=== PATIENT | female | born 1955 | race Caucasian/White ===

== ENCOUNTER → 2023-08-03 15:20 | Outpatient (REF) | payer OTHER, SELFPAY | LOC: WDC 15:20 | PROVIDERS: ATTENDING PHYSICIAN Family Medicine | DX: Z12.31 Encounter for screening mammogram for malignant neoplasm of breast (principal) | CPT/HCPCS: 77063; 77067 ==

== ENCOUNTER 2023-08-25 07:15 | Emergency (ER) | payer OTHER, SELFPAY ==
[2023-08-25 07:17] VITALS: BP 123/88
--- NOTE | 2023-08-25 08:41 | ED.GENMED ---
History of Present Illness
General
Chief Complaint: Abdominal Symptoms
Source: patient
Exam Limitations: none
Time Seen by Provider: 08/25/23 07:36
Nursing documentation reviewed up to this point in time: agreed with
Travel History
Have you had any contact with someone who has COVID-19?: No
Do you have any symptoms of coronavirus? Fever > 100 degrees, chills, cough, shortness of breath, sore throat, loss of taste or smell, muscle aches, or headache?: No
History of Present Illness
History of Present Illness:
The patient is a pleasant 68-year-old female who comes in with complaints of persistent ongoing watery diarrhea for 6 days. Patient also reports intermittent abdominal pain that intensifies during the evening and spreads into her chest. Patient
reports that last night she experienced intense abdominal cramping that radiated into her chest and she felt pressure in her ears as well. At that moment, patient also felt that she cannot swallow. Patient reports she now feels much better but
still has mild burning pain in her mid upper abdomen area. Patient reports this morning is the first time she had a more formed bowel movement. She also experienced vomiting for the first time last night. She denies fever. She denies sore throat
and any difficulty swallowing at this time. She denies sick contacts and recent travel history. She reports she was recently on several weeks of doxycycline for rosacea. Patient reports she also has fatigue and body aches and cramps.
Past History
Past History
ED Past Medical History: Cancer (History of non-Hodgkin's lymphoma), HTN, Hypercholesterolemia and Other (Raynaud's disease)
ED Past Surgical History: Gynecological and Orthopedic
Social History
Tobacco: Former smoker
Alcohol: Occasional
Personal: Single
Living: with family
Employment: Employed
Family History
Family History: CAD and Other (CA)
Review of Systems
Review of Systems
Allergies reviewed?: Yes
All Other Systems: ROS reviewed and negative except as documented in HPI and ROS
Constitutional: Reports fatigue
EENT: Reports other (Difficulty swallowing last night which is now resolved. Bilateral ear pain which is now resolved)
Respiratory: Reports no symptoms
Cardiac: Reports chest pain
ABD/GI: Reports abdominal pain, nausea, vomiting, diarrhea and anorexia
: Reports no symptoms
Musculoskeletal: Reports muscle pain
Skin: Reports no symptoms
Neurological: Reports headache
Endocrine: Reports no symptoms
Hematologic/Lymphatic: Reports no symptoms
Psychiatric: Reports no symptoms
Phy Exam
Physical Exam
Physical Exam:
Physical Exam
General: no apparent distress, not acutely ill, patient appears nontoxic. Is conversational
Neck: supple. no meningeal signs. normal psoterior pharynx. No pharyngeal erythema or exudate. TMs appear normal bilaterally
Heart: s1/s2 regular rate and rhythm, systolic ejection murmur. equal radial pulses.
Lungs: no acute respiratory distress. clear bilaterally
Abdomen: Soft throughout. No pulsatile mass. Mild epigastric tenderness without rebound or guarding
Neuro: alert and oriented. no focal neurological deficits
Skin: no rash
Psychiatric: well kept. interactive and cooperative
Extremities: no edema. no calf tenderness. negative homans. good distal pulses
Course
Orders/Labs/Results
Orders:
Orders
08/25/23 08:26
Electrocardiogram (*1) Urgent
Reason for Study: Chest Pain
EKG- Treatment ONCE
0.9% Sodium Chloride 1000 ml [Nss] 1,000 ml IV BOLUS
Mag Hydrox/Al Hydrox/Simeth [Maalox] 30 ml Phenobarb/Hyoscy/Atropine/Scop [] 10 ml Viscous Lidocaine 2% [Xylocaine Viscous Cup] 10 ml PO NOW
08/25/23 08:27
Iohexol [Omnipaque] See Protocol PO NOW STA
08/25/23 09:04
Complete Blood Count/With Diff Urgent
Comprehensive Metabolic Panel Urgent
Lipase Urgent
Monotest Urgent
Troponin I Urgent
Influenza A+B Rapid Molecular Urgent
ACE Source: Nasal Swab
Specimen Description:
08/25/23 09:34
Mag Hydrox/Al Hydrox/Simeth [Maalox] 30 ml .ROUTE .STK-MED ONE
Phenobarb/Hyoscy/Atropine/Scop [] 10 ml .ROUTE .STK-MED ONE
Viscous Lidocaine 2% [Xylocaine Viscous Cup] 15 ml .ROUTE .STK-MED ONE
08/25/23 11:32
Ondansetron Injectable [Zofran] 4 mg IV NOW STA
08/25/23 11:33
CT Abd/pel (oral only)-DH Only Urgent
Comment:
Reason For Exam: ab pain, vomiting
Iohexol [Omnipaque] See Protocol PO NOW STA
08/25/23 11:46
STOOL [C difficile Antigen & Toxins] Urgent
ACE Source: Feces/Stool
Specimen Description:
Date Specimen was Collected: 08/25/23
Time Specimen was Collected: 11:44
Stool Culture Urgent
ACE Source: Feces/Stool
Specimen Description:
Date Specimen was Collected: 08/25/23
Time Specimen was Collected: 11:44
08/25/23 13:13
Loperamide [Imodium] 2 mg PO NOW STA
08/25/23 13:14
Loperamide [Imodium] 4 mg PO NOW STA
Abnormal Lab Results
08/25/23
09:04
Absolute Monos (auto) 0.8 H 10^3/uL
(0.1-0.6)
Lymphocytes % 13.7 L %
(20.5-51.1)
Eosinophils % 6.8 H %
(0-6)
Glucose 114 H mg/dl
(70-99)
Alkaline Phosphatase 138 H U/L
(38-126)
08/25/23 09:04
08/25/23 09:04
Vital Signs
Initial and Last Documented VS:
Initial Vital Signs
Temp Pulse Resp BP Pulse Ox
97.6 F 91 18 123/88 96
08/25/23 07:17 08/25/23 07:17 08/25/23 07:17 08/25/23 07:17 08/25/23 07:17
Last Documented Vital Signs
Temp Pulse Resp BP Pulse Ox
97.6 F 91 18 123/88 96
08/25/23 07:17 08/25/23 07:17 08/25/23 07:17 08/25/23 07:17 08/25/23 07:17
MDM/Problems Addressed
Differential Diagnosis Includes:
Gastroenteritis, gastritis, pancreatitis, C. difficile
MDM/Problems Addressed:
Patient presents with acute abdominal pain and diarrhea
Chronic conditions affecting care: HTN
*Radiology
Radiology exam reviewed: radiology read reviewed
*Pulse Oximetry
Patient hypoxic: no
*EKG
Interpreted by ED Provider?: Yes
Interpretation: abnormal
Comparison EKG: changes noted
Rate: normal
Rhythm: sinus
[place]: normal axis
QRS Pattern: normal QRS
Ischemia: non-specific ST changes
*Cage Tender Interpretation
Rate: normal
Interpretation: normal
Rhythm: sinus
*Critical Care Note
Total Time (30-74mins, 75-104mins- exclusive of procedures): Not Applicable
Data Reviewed
Review of Other/Old Records Reveals: Testing (Cardiac echo reviewed from 02/2023 which shows moderate aortic stenosis)
Source: patient
Update Note
Update Note:
1:21 PM patient reports she feels better. Chest pain gone. Still having watery nonbloody diarrhea. CT shows no evidence of bowel obstruction or acute appendicitis. Symptoms are likely due to gastroenteritis. Very unlikely to be acute coronary
syndrome given that patient's pain is more epigastric in nature and her troponin is normal. Patient encouraged to use Zofran as needed for nausea and Imodium as needed for diarrhea.
ED Attending Note
-
Portions of this chart may have been created with voice recognition software.� Occasional wrong word or��sound alike� substitutions may have occurred due to the inherent limitations of voice recognition software.
Discharge Plan
Departure
Patient Disposition: Home (Routine Discharge)
Date of Disposition: 08/25/23
Time of Disposition: 13:15
Patient with high blood pressure during this ER visit?: Yes
Condition: Good
Covid-19: Not Applicable
Discharge Problem:
Acute diarrhea, Acute vomiting
Instructions: Diarrhea in adolescents and adults, [place] Diet, Nausea and Vomiting, Adult (DC)
Prescriptions:
New
ondansetron 4 mg tablet,disintegrating
4 mg PO QID PRN (Reason: nausea and vomiting) Qty: 14 0RF
No Action
lorazepam 0.5 MG tablet
0.5 mg PO PRN PRN (Reason: anxiety/insomnia)
red yeast rice 600 MG capsule
600 mg PO DAILY
Magnesium
1 tab PO DAILY
acetaminophen 325 MG tablet
650 mg PO QID 0RF
hydromorphone 2 MG tablet
2 mg PO Q4HPRN PRN (Reason: moderate-severe pain) Qty: 60 0RF
Rx Instructions:
dx tka
ongoing
1 moderate pain or 2 if severe
magnesium hydroxide 30 ML suspension
30 ml PO DAILYPRN PRN (Reason: constipation) 0RF
aspirin 325 MG tablet,delayed release (DR/EC)
325 mg PO DAILY 0RF
docusate sodium 100 MG capsule
100 mg PO BID 0RF
mupirocin 1 APPLIC ointment
1 applic intranasal BID Qty: 1 0RF
Rx Instructions:
use tonight 03/31, then stop
amlodipine 5 MG tablet
5 mg PO HS Qty: 0 0RF
Rx Instructions:
hold systolic blood pressure <120
naproxen sodium [Aleve] 220 MG tablet
220 mg PO BID Qty: 1 0RF
Rx Instructions:
RESUME IN 5-7 DAYS, BUT TAKE WITH FOOD AND NOT WITHIN 2H OF ASA
--TAKE PEPCID 20MG AT PM IF TAKING WHILE ON ASA
Referrals:
Hilda Zavala MD [Family Provider] -
Activity Restrictions/Additional Instructions:
Use the Zofran as needed for nausea. As long as the diarrhea stays nonbloody, you can take Imodium, which is sold [id number]
Interventions
Interventions:
*General Assessment Last Done: 08/25/23 09:48
ED- Fall Risk Assessment Last Done: 08/25/23 09:49
*ED COVID-19 Vaccine History Last Done: 08/25/23 09:48
RM-[id number] Assessment Last Done: 08/25/23 09:50
[2023-08-25] MEDS: NSS 1000 IV (09:06)
[2023-08-25 09:30] LABS: % Basophils 0.2 % (0-2); % Eosinophils 6.8 % (0-6); % Immature Granulocytes 0.2 % (0-0.5); % Lymphocytes 13.7 % (20.5-51.1); % Monocytes 9.1 % (1.7-9.3); Absolute Eosinophils 0.6 10^3/uL (0-0.7); Absolute Lymphocytes 1.2 10^3/uL (1.2-3.4); Absolute Monocytes 0.8 10^3/uL (0.1-0.6); Hematocrit 42.1 % (37.0-47.0); Hemoglobin 14.2 g/dL (12.0-16.0); Mean Corp Hgb Conc. 33.7 g/dL (33.0-37.0); Mean Corpuscular Hgb 30.5 pg (27.0-31.0); Mean Corpuscular Volume 90.5 fL (81.0-99.0); Mean Platelet Volume 10.1 fL (7.4-10.4); Nucleated Red Blood Cells % 0 %; Platelet Count 214 10^3/uL (130-400); Red Blood Cell Count 4.65 10^6/uL (4.20-5.40); Red Cell Dist. Width 12.3 % (11.5-14.5); White Blood Cell Count 8.6 10^3/uL (4.8-10.8)
[2023-08-25] MEDS: OMNIPAQUE 50 ML PO (09:38)
[2023-08-25] MEDS: MAALOX 30 PO (09:39)
[2023-08-25 09:40] LABS: ALT (SGPT) 30 U/L (0-35); AST (SGOT) 28 U/L (14-36); Albumin 4.3 g/dl (3.5-5.0); Alkaline Phosphatase 138 U/L (38-126); Blood Urea Nitrogen 12 mg/dl (7-17); Calcium 9.3 mg/dl (8.4-10.2); Carbon Dioxide 26 mmol/L (22-30); Chloride 104 mmol/L (98-107); Glucose 114 mg/dl (70-99); Lipase 48 U/L (23-300); Potassium 3.8 mmol/L (3.5-5.1); Sodium 138 mmol/L (135-145); Total Bilirubin 0.5 mg/dl (0.2-1.3); Total Protein 6.6 g/dl (6.3-8.2); eGFR > 60.00
[2023-08-25 09:50] VITALS: BMI 21.1
[2023-08-25 09:50] LABS: Troponin I < 0.012 ng/ml
[2023-08-25 10:00] LABS: Monotest Negative (Negative)
[2023-08-25] MEDS: ZOFRAN 4 MG IV (11:36)
[2023-08-25] MEDS: IMODIUM 4 MG PO (13:18)
[2023-08-25 13:43] VITALS: BP 133/80
[2023-08-25 13:44] VITALS: BP 133/80
== END 2023-08-25 13:46 | disposition home or self-care (01) ==
LOC: EMR 07:15
PROVIDERS: EMERGENCY PHYSICIAN Emergency Medicine; FAMILY PHYSICIAN Family Medicine
DX: R19.7 Diarrhea, unspecified (principal); R11.2 Nausea with vomiting, unspecified; I10 Essential (primary) hypertension; I73.00 Raynaud's syndrome without gangrene; E78.00 Pure hypercholesterolemia, unspecified; Z82.49 Family history of ischemic heart disease and other diseases of the circulatory system; Z85.72 Personal history of non-Hodgkin lymphomas; Z87.891 Personal history of nicotine dependence
CPT/HCPCS: 99284; 96374; 96361; 74176; 80053; 83690; 84484; 85025; 86308; 87045; 87046; 87324; 87427; 87449; 87502; 93005

== ENCOUNTER → 2024-01-15 09:00 | Outpatient (REF) | payer OTHER, SELFPAY | LOC: RAD 09:00 | PROVIDERS: ATTENDING PHYSICIAN Internal Medicine Rheumatology; FAMILY PHYSICIAN Family Medicine | DX: M81.0 Age-related osteoporosis without current pathological fracture (principal) | CPT/HCPCS: 77080 ==

== ENCOUNTER → 2024-02-19 10:14 | Outpatient (REF) | payer OTHER, SELFPAY | LOC: RCS 10:14 | PROVIDERS: ATTENDING PHYSICIAN Internal Medicine Cardiovascular Disease; FAMILY PHYSICIAN Family Medicine | DX: I35.0 Nonrheumatic aortic (valve) stenosis (principal) | CPT/HCPCS: 93306 ==

== ENCOUNTER 2024-06-06 11:11 | Outpatient (RCR) | payer OTHER, SELFPAY | END 2024-06-06 23:59 | disposition home or self-care (01) | LOC: RPT 11:11 | PROVIDERS: ATTENDING PHYSICIAN Obstetrics & Gynecology; FAMILY PHYSICIAN Family Medicine | DX: N81.6 Rectocele (principal); N39.41 Urge incontinence; R35.0 Frequency of micturition; K46.9 Unspecified abdominal hernia without obstruction or gangrene; K62.89 Other specified diseases of anus and rectum; Z73.6 Limitation of activities due to disability | CPT/HCPCS: 97110; 97161; 97530 ==

== ENCOUNTER 2024-07-06 18:23 | Observation (INO) | payer OTHER, MEDICARE, SELFPAY ==
[2024-07-06] VITALS (10 sets, daily range): BP systolic 141–190; BP diastolic 75–105; BMI 19.9
--- NOTE | 2024-07-06 15:45 | ED.GENMED ---
ED Provider Triage
<Song Jimenez PA-C - Last Filed: 07/06/24 15:51>
-
Patient seen by provider in Triage?: Seen in Triage
Attestation: A medical screening examination has been initiated by a qualified medical provider. Based on the assessment performed at this time, it has been determined that an emergent medical condition may exist and the patient has been informed
that further medical evaluation and possible additional diagnostic testing may be needed.
HPI: 69-year-old female with past medical history of previous CVA and vestibular migraines presenting to the emergency department for evaluation of left lip paresthesia sensation that began about 2 hours ago, right upper extremity numbness that
began approximately 1 hour ago while she was out to lunch with a friend. Patient has also had some vestibular symptoms intermittently over the last 48 hours. Patient notes that today she has been unable to stand up on her own. She takes an 81 mg
aspirin as well as amlodipine. Found to be significantly hypertensive in triage. She is dysmetric on my exam, more so on the right. Stroke alert called given patient's history.
GENERAL: Alert , in no apparent distress
EYE: No visual abnormalities.
NECK: Trachea midline
ENT: No visible abnormalities.
LUNGS: No acute respiratory distress
NEUROLOGICAL: Alert and oriented
SKIN: Skin intact. No visible changes.
MUSCULOSKELETAL: Moving extremities normally
PSYCH: Normal and appropriate interaction.
This is a medical evaluation conducted in person to initiate diagnostic evaluation and provide initial therapeutics. Please see further documentation by the treating clinician.
History of Present Illness
<Song Jimenez PA-C - Last Filed: 07/06/24 15:51>
General
Chief Complaint: CVA/TIA Symptoms
Time Seen by Provider: 07/06/24 16:15
<Wei Hutchison MD - Last Filed: 07/08/24 14:54>
History of Present Illness
History of Present Illness:
Patient is a 69-year-old female with a history of vestibular migraines and CVA in the past who presents with multiple days of dizziness, vertigo, headache. Today she began having more severe symptoms and felt numbness and tingling on the right side
of her face and right arm. She states it feels similar to her prior thalamic stroke.
Past History
<Song Jimenez PA-C - Last Filed: 07/06/24 15:51>
Past History
ED Past Medical History: Cancer (History of non-Hodgkin's lymphoma), HTN, Hypercholesterolemia and Other (Raynaud's disease)
ED Past Surgical History: Gynecological and Orthopedic
Social History
Tobacco: Former smoker
Alcohol: Occasional
Personal: Single
Living: with family
Employment: Employed
Family History
Family History: CAD and Other (CA)
Phy Exam
<Wei Hutchison MD - Last Filed: 07/08/24 14:54>
Physical Exam
Physical Exam:
GENERAL APPEARANCE: NAD, well developed/ well nourished, laying in stretcher with sunglasses on
EYES lids/conjunctiva normal
EARS/NOSE/THROAT Mucous membranes moist, uvula midline without oral pharyngeal erythema, exudate or swelling
HEAD/NECK normocephalic atraumatic, neck is supple.
RESPIRATORY respiratory effort normal, speaks in full sentences, no accessory muscle use. Lungs clear to auscultation without rhonchi, wheezes, rales
CARDIAC Regular rate and rhythm, no edema.
ABDOMINAL Soft, ND/NT. No pulsatile masses on exam, rebound tenderness, Rodriguez sign or pain over Mcburney's point.
MUSCLES/EXTREMITIES No abnormal range of motion, no swelling.
SKIN Warm, pink and dry. No rashes
NEUROLOGICAL Speech is clear and appropriate. Normal level of consciousness. 5/5 strength in all extremities. Mildly diminished sensation to right side of face and right upper extremity. She has mild dysmetria in upper extremities bilaterally.
Cranial nerves II through XII are intact otherwise there is no nystagmus.
PSYCH Normal mood and affect. Judgement/competence is appropriate
Course
<Song Jimenez PA-C - Last Filed: 07/06/24 15:51>
Orders/Labs/Results
Orders:
Orders
07/06/24 Breakfast
Sodium, 2 Gram
At Your Request: Limited Participation
Low Sodium: Cholesterol Lowering
07/06/24 15:50
CT HEAD STROKE ALERT W/o Cont Urgent
Comment:
Reason For Exam: dysmetria, HTN, RUE numbness, hx CVA
CT HEAD/NECK ANG STROKE ALERT Urgent
Comment:
Reason For Exam: dysmetria, HTN, RUE numbness, hx CVA
07/06/24 15:57
EKG [Electrocardiogram (*1)] Urgent
Reason for Study: Tachycardia
EKG- Treatment ONCE
07/06/24 16:04
Complete Blood Count/With Diff Urgent
Comprehensive Metabolic Panel Urgent
PTT Urgent
Troponin I Urgent
07/06/24 16:43
Aspirin Chewable [Low Strength Aspirin] 324 mg PO NOW STA
07/06/24 17:47
Admit/Transfer Patient As Directed
Co-Sign Provider:
Level of Care: Observation services
Assign to:: Telemetry
Physician / Group: Jh Jones
Diagnosis: Numbness, Uncontrolled hypertension
Reason for Telemetry: CVA/TIA
Date to Stop Telemetry: 07/09/24
Time to Stop Telemetry: 11:00
07/06/24 17:49
Code Status As Directed
Resuscitation Status: Full Code
PRN Pain Medication Management As Directed
May give lesser potent ordered pain med per pt: Yes
preference::
Protocol:: Medication orders for pain may be administered in a
manner that supports deferring to patient preference
when the pt is:
- Requesting an ordered lesser potent pain medication.
Least to most potent pain medications are defined
as: acetaminophen < NSAID < tramadol < opioids
(morphine, oxycodone, hydromorphone).
- Requesting a lesser dose of the same medication IF
ORDERED.
- Requesting a less intrusive route of administration
if both routes are prescribed by the provider (PO <
IV).
07/06/24 17:51
Acetaminophen [Tylenol] 1,000 mg PO NOW STA
07/06/24 19:56
Acetaminophen [Tylenol/Feverall] 650 mg RECTAL Q4HPRN PRN
Acetaminophen [Tylenol] 650 mg PO Q4HPRN PRN
HydrALAZINE [Apresoline] 5 mg IV Q4HPRN PRN
07/06/24 19:56
Case Management Consult ONCE
Case Management Consult: Discharge Planning
Comment: stroke/tia
DIETARY CONSULT Routine
Reason for Consult: stroke/TIA
NEUROLOGY CONSULT Urgent
Consulting Provider: Marleny Storey
Was physician already notified: Yes
Pneumatic Tester Routine
Activity As Directed
Activity Level: Out of Bed-Early Mobility
Patient Education As Directed
Type: Stroke education packet
Comment: provide to patient and family
Pneumatic Compression Sleeves As Directed
Type: Knee high
Vital Signs As Directed
Frequency: Per unit guidelines
Ot Eval And Treat Routine
Pt Eval And Treat Routine
Activity Level: Out of Bed-Early Mobility
Speech Therapy Eval & Treat Routine
DX Deep Vein Thrombosis Video Routine
07/06/24 22:00
Lorazepam [Ativan] 1 mg PO HS
07/07/24 06:14
Basic Metabolic Panel IN AM
Cardiovascular Evaluation IN AM
Complete Blood Count/No Diff IN AM
Glycohemoglobin (HgbA1c) IN AM
Magnesium IN AM
07/07/24 08:00
Aspirin Low Dose EC [Aspir Low (Enteric Coated)] 81 mg PO DAILY
vibegron [Gemtesa] 75 mg PO DAILY
07/07/24 17:05
MR Brain Without Contrast Routine
Reason For Exam: numbness
OK for patient to be off Cardiac Monitoring for MRI: No
Recent pill cam endoscopy?: No
07/09/24 11:00
DC Protocol for Telemetry ONCE
Abnormal Lab Results
07/06/24
16:04
MCH 31.3 H pg
(27.0-31.0)
Absolute Monos (auto) 0.7 H 10^3/uL
(0.1-0.6)
Monocytes % 9.4 H %
(1.7-9.3)
BUN 18 H mg/dl
(7-17)
07/06/24 16:04
07/06/24 16:04
Vital Signs
Initial and Last Documented VS:
Initial Vital Signs
Temp Pulse Resp BP Pulse Ox
98.1 F 83 16 190/100 97
07/06/24 15:44 07/06/24 15:44 07/06/24 15:44 07/06/24 15:44 07/06/24 15:44
Last Documented Vital Signs
Temp Pulse Resp BP Pulse Ox
97.7 F 72 18 156/94 99
07/08/24 14:17 07/08/24 14:17 07/08/24 14:17 07/08/24 14:17 07/08/24 14:17
<Wei Hutchison MD - Last Filed: 07/08/24 14:54>
Orders/Labs/Results
Orders:
Orders
07/06/24 Breakfast
Sodium, 2 Gram
At Your Request: Limited Participation
Low Sodium: Cholesterol Lowering
07/06/24 15:50
CT HEAD STROKE ALERT W/o Cont Urgent
Comment:
Reason For Exam: dysmetria, HTN, RUE numbness, hx CVA
CT HEAD/NECK ANG STROKE ALERT Urgent
Comment:
Reason For Exam: dysmetria, HTN, RUE numbness, hx CVA
07/06/24 15:57
EKG [Electrocardiogram (*1)] Urgent
Reason for Study: Tachycardia
EKG- Treatment ONCE
07/06/24 16:04
Complete Blood Count/With Diff Urgent
Comprehensive Metabolic Panel Urgent
PTT Urgent
Troponin I Urgent
07/06/24 16:43
Aspirin Chewable [Low Strength Aspirin] 324 mg PO NOW STA
07/06/24 17:47
Admit/Transfer Patient As Directed
Co-Sign Provider:
Level of Care: Observation services
Assign to:: Telemetry
Physician / Group: Jh Jones
Diagnosis: Numbness, Uncontrolled hypertension
Reason for Telemetry: CVA/TIA
Date to Stop Telemetry: 07/09/24
Time to Stop Telemetry: 11:00
07/06/24 17:49
Code Status As Directed
Resuscitation Status: Full Code
PRN Pain Medication Management As Directed
May give lesser potent ordered pain med per pt: Yes
preference::
Protocol:: Medication orders for pain may be administered in a
manner that supports deferring to patient preference
when the pt is:
- Requesting an ordered lesser potent pain medication.
Least to most potent pain medications are defined
as: acetaminophen < NSAID < tramadol < opioids
(morphine, oxycodone, hydromorphone).
- Requesting a lesser dose of the same medication IF
ORDERED.
- Requesting a less intrusive route of administration
if both routes are prescribed by the provider (PO <
IV).
07/06/24 17:51
Acetaminophen [Tylenol] 1,000 mg PO NOW STA
07/06/24 19:56
Acetaminophen [Tylenol/Feverall] 650 mg RECTAL Q4HPRN PRN
Acetaminophen [Tylenol] 650 mg PO Q4HPRN PRN
HydrALAZINE [Apresoline] 5 mg IV Q4HPRN PRN
07/06/24 19:56
Case Management Consult ONCE
Case Management Consult: Discharge Planning
Comment: stroke/tia
DIETARY CONSULT Routine
Reason for Consult: stroke/TIA
NEUROLOGY CONSULT Urgent
Consulting Provider: Marleny Storey
Was physician already notified: Yes
Pneumatic Tester Routine
Activity As Directed
Activity Level: Out of Bed-Early Mobility
Patient Education As Directed
Type: Stroke education packet
Comment: provide to patient and family
Pneumatic Compression Sleeves As Directed
Type: Knee high
Vital Signs As Directed
Frequency: Per unit guidelines
Ot Eval And Treat Routine
Pt Eval And Treat Routine
Activity Level: Out of Bed-Early Mobility
Speech Therapy Eval & Treat Routine
DX Deep Vein Thrombosis Video Routine
07/06/24 22:00
Lorazepam [Ativan] 1 mg PO HS
07/07/24 06:14
Basic Metabolic Panel IN AM
Cardiovascular Evaluation IN AM
Complete Blood Count/No Diff IN AM
Glycohemoglobin (HgbA1c) IN AM
Magnesium IN AM
07/07/24 08:00
Aspirin Low Dose EC [Aspir Low (Enteric Coated)] 81 mg PO DAILY
vibegron [Gemtesa] 75 mg PO DAILY
07/07/24 17:05
MR Brain Without Contrast Routine
Reason For Exam: numbness
OK for patient to be off Cardiac Monitoring for MRI: No
Recent pill cam endoscopy?: No
07/09/24 11:00
DC Protocol for Telemetry ONCE
Abnormal Lab Results
07/06/24
16:04
MCH 31.3 H pg
(27.0-31.0)
Absolute Monos (auto) 0.7 H 10^3/uL
(0.1-0.6)
Monocytes % 9.4 H %
(1.7-9.3)
BUN 18 H mg/dl
(7-17)
07/06/24 16:04
07/06/24 16:04
Vital Signs
Initial and Last Documented VS:
Initial Vital Signs
Temp Pulse Resp BP Pulse Ox
98.1 F 83 16 190/100 97
07/06/24 15:44 07/06/24 15:44 07/06/24 15:44 07/06/24 15:44 07/06/24 15:44
Last Documented Vital Signs
Temp Pulse Resp BP Pulse Ox
97.7 F 72 18 156/94 99
07/08/24 14:17 07/08/24 14:17 07/08/24 14:17 07/08/24 14:17 07/08/24 14:17
<Wei Hutchison MD - Last Filed: 07/08/24 14:54>
*Critical Care Note
Total Time (30-74mins, 75-104mins- exclusive of procedures): Not Applicable
ED Attending Note
<Song Jimenez PA-C - Last Filed: 07/06/24 15:51>
-
Portions of this chart may have been created with voice recognition software.� Occasional wrong word or��sound alike� substitutions may have occurred due to the inherent limitations of voice recognition software.
<Wei Hutchison MD - Last Filed: 07/08/24 14:54>
ED Attending Note
ED Attending Note:
Patient with dizziness and vertigo ambulatory dysfunction as well as right-sided sensory changes. Stroke alert called on arrival. Neurology evaluated patient and suggested against any thrombolytics given patient's history of vestibular migraine
and current vestibular symptoms. However, given the sensory symptoms on the right as well as her history of prior thalamic infarct, will admit for stroke rule out
Discharge Plan
Departure
Patient Disposition: Admit
Date of Disposition: 07/06/24
Time of Disposition: 16:50
Presentation/result/management discussed w/ accepting MD/DO: Hospitalist
Discharge Problem:
Dizziness, Alteration in sensory perception
Interventions
Interventions:
*Risk Screen - Suicide Last Done: 07/06/24 15:44
*General Assessment Last Done: 07/06/24 15:44
*Neglect/Abuse Screening Last Done: 07/06/24 15:44
ED- Fall Risk Assessment Last Done: 07/06/24 16:00
*ED COVID-19 Vaccine History Last Done: 07/06/24 15:44
*Nursing Disposition Last Done: 07/06/24 19:40
ED- Pulmonary Assessment Last Done: 07/06/24 16:30
ED- Neurological Assessment Last Done: 07/06/24 16:29
ED- Cardiac Assessment Last Done: 07/06/24 16:28
ED Swallowing Screen Last Done: 07/06/24 16:45
Discharge Date and Time
Discharge Date/Time: 07/06/24 19:40
[2024-07-06 15:56] LABS: Glucose - Point of Care 99 mg/dl (70-99)
[2024-07-06 16:18] LABS: % Basophils 0.6 % (0-2); % Immature Granulocytes 0.1 % (0-0.5); % Lymphocytes 29.1 % (20.5-51.1); % Monocytes 9.4 % (1.7-9.3); % Neutrophils 59.8 % (42.2-75.2); Absolute Eosinophils 0.1 10^3/uL (0-0.7); Absolute Lymphocytes 2.1 10^3/uL (1.2-3.4); Absolute Monocytes 0.7 10^3/uL (0.1-0.6); Absolute Neutrophils 4.3 10^3/uL (1.4-6.5); Hematocrit 40.2 % (37.0-47.0); Mean Corp Hgb Conc. 34.8 g/dL (33.0-37.0); Mean Corpuscular Hgb 31.3 pg (27.0-31.0); Mean Corpuscular Volume 89.9 fL (81.0-99.0); Mean Platelet Volume 9.7 fL (7.4-10.4); Nucleated Red Blood Cells % 0 %; Platelet Count 256 10^3/uL (130-400); Red Blood Cell Count 4.47 10^6/uL (4.20-5.40); Red Cell Dist. Width 11.9 % (11.5-14.5); White Blood Cell Count 7.1 10^3/uL (4.8-10.8)
--- NOTE | 2024-07-06 16:19 | CON.NEURO ---
Consultation
Order
Date of Consultation: 07/06/24
Requesting Provider:
Reason for Consult: Stroke alert
Called in at 3:51 PM
Neurology Consultation Note.
HPI: This is a 69-year-old woman who presented to [facility] on 07/06/2024 with ambulatory dysfunction. Ms. Buckley endorses 2-day history of worsening of her 'vestibular migraine' with associated imbalance
She reports being unable to walk without support, which prompted her hospital visit. The patient also complains of headache and numbness in her right arm, right side, and left chin/lip area, which started at lunchtime. No reports of change in
vision, strength, speech or language.
She initially attributed her symptoms to her vestibular migraines but sought medical attention when her balance significantly deteriorated. The patient reports a fall 3 days ago and has been experiencing dizziness since then.
Ms. Buckley now uses a cane for ambulation, which is a recent change in her mobility status.
Review of EMR was notable for history of left thalamic stroke and 'concussion from a vase falling to left cheek' in 2016.
ER VS: 190/100, 83, afebrile.
EKG: NSR, QTc Int : 450 ms
PDMP:Pregabalin 75 Mg�90 caps filled in on 05/13/2024, 06/18/2024 Lorazepam 1 Mg� 60 tabs filled in on 05/10/2024, 03/16/2024.
Labs: Normal glucose, sodium, calcium, LFTs, WBCs, platelets.
CT head wo contrast- right maxillary sinus polyp vs mucous retention cyst, mild atrophy, no acute infarcts
CTA head/neck�no evidence of LVO, dissection or thrombosis
PMH: Non hodgkins small T cell lymphoma, left thalamic stroke(2016), vestibular migraine on Emgality?, DLP, COPD, nephrolithiasis, OA, ROSANGELA, Raynauds disease
PSH: bl augmentation mammoplasty, bilateral TKA, left shoulder arthroscopy, Mohs left neck
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
All: Penicillin, tramadol, morphine, oxycodone, Lasix, Dilaudid, acetaminophen
HENT: Positive for vertigo
Allergic/Immunologic: Negative. Negative for immunocompromised state, imbalance.
Neurological: Positive for headache, right arm and left face numbness
NIH Stroke Scale
1A Level of Consciousness:�0/3
1B LOC Questions:�0/2
1C LOC Commands:�0/2
2 Best Gaze:�0/2
3 Visual:�0/3
4 Facial Palsy:�0/3
5A Motor Arm LEFT:�0/4
5B Motor Arm RIGHT:�0/4
6A Motor Leg LEFT:�0/4
6B Motor Leg RIGHT:�0/4
7 Limb Ataxia:�0/2
8 Sensory:�1/2
9 Best Language:�0/3
10 Dysarthria:�0/2
11 Extinction/Inattention:�0/2
Assessment and Plan:
I. Hypertensive emergency. Not a candidate for IV thrombolysis due to low NIH score.
II. History of left thalamic stroke(2016)
III. History of vestibular migraine
-Continue Telemetry monitoring
-Cautious lowering of BP by approximately 15 % during the first 24 hours is SBP >220 mmHg or diastolic blood pressure >120 mmHg
-Restart antihypertensive medications during if BP>140/90 mmHg who are neurologically stable in 24 to 48 hours after stroke onset
-ASA 81 mg QD
-LDL, hemoglobin A1c
-Brain MRI without rosangela
-PT.
-DVT prophylaxis.
I personally reviewed all radiology and labs along with past medical records pertinent to current medical problems. Total time spent in patient care is 60 minutes.
Thank you for allowing us to participate in the care of this patient. We will continue to follow. Please do not hesitate to contact us with any questions or concerns.
Subjective/Objective
Subjective Data
Date of Service: July 06, 2024
Objective Data
Vital Signs
Temp Pulse Resp BP Pulse Ox
36.7 C 74 18 181/105 99
07/06/24 15:44 07/06/24 16:04 07/06/24 16:04 07/06/24 16:04 07/06/24 16:04
Lab Results
07/06/24 16:04
Patient Allergies
acetaminophen [From Percocet] Allergy (Verified 07/06/24 15:49)
Rash
hydromorphone [From Dilaudid] Allergy (Verified 07/06/24 15:49)
rash and vomiting
latex [Latex] Allergy (Verified 07/06/24 15:49)
Rash
morphine Allergy (Verified 07/06/24 15:49)
Vomiting
oxycodone [From Percocet] Allergy (Verified 07/06/24 15:49)
Rash
Penicillins Allergy (Verified 07/06/24 15:49)
Rash as a child
tramadol Allergy (Verified 07/06/24 15:49)
Itching
insect bites Allergy (Uncoded 07/06/24 15:49)
swelling,throat closing
Medications
-
Home Medications
�Medication �Instructions �Recorded
lorazepam 0.5 mg tablet 0.5 mg PO PRN PRN anxiety/insomnia 02/01/16
Magnesium 1 tab PO DAILY 03/24/18
red yeast rice 600 mg capsule 600 mg PO DAILY 03/24/18
acetaminophen 325 mg tablet 650 mg (2 x 325 mg) PO QID 03/31/18
amlodipine 5 mg tablet 5 mg PO HS ##0 03/31/18
aspirin 325 mg tablet,delayed 325 mg PO DAILY 03/31/18
release
docusate sodium 100 mg capsule 100 mg PO BID 03/31/18
hydromorphone 2 mg tablet 2 mg PO Q4HPRN PRN moderate-severe 03/31/18
pain ##60
magnesium hydroxide 400 mg/5 mL 30 ml PO DAILYPRN PRN constipation 03/31/18
oral suspension
mupirocin 2 % topical ointment 1 applic intranasal BID ##1 03/31/18
naproxen sodium 220 mg tablet 220 mg PO BID #1 tab 03/31/18
(Aleve)
ondansetron 4 mg disintegrating 4 mg PO QID PRN nausea and 08/25/23
tablet vomiting #14 tabs
Vital Signs and Labs
-
Vital Signs and Labs:
Vital Signs
Temp Pulse Resp BP Pulse Ox
36.7 C 74 18 181/105 99
07/06/24 15:44 07/06/24 16:04 07/06/24 16:04 07/06/24 16:04 07/06/24 16:04
Lab Results
07/06/24 16:04
Home Medications
-
Home Medications
lorazepam 0.5 mg tablet 0.5 mg PO PRN PRN anxiety/insomnia 02/01/16
Magnesium 1 tab PO DAILY 03/24/18
red yeast rice 600 mg capsule 600 mg PO DAILY 03/24/18
acetaminophen 325 mg tablet 650 mg (2 x 325 mg) PO QID 03/31/18
amlodipine 5 mg tablet 5 mg PO HS ##0 03/31/18
aspirin 325 mg tablet,delayed release 325 mg PO DAILY 03/31/18
docusate sodium 100 mg capsule 100 mg PO BID 03/31/18
hydromorphone 2 mg tablet 2 mg PO Q4HPRN PRN moderate-severe pain ##60 03/31/18
magnesium hydroxide 400 mg/5 mL oral suspension 30 ml PO DAILYPRN PRN constipation 03/31/18
mupirocin 2 % topical ointment 1 applic intranasal BID ##1 03/31/18
naproxen sodium 220 mg tablet (Aleve) 220 mg PO BID #1 tab 03/31/18
ondansetron 4 mg disintegrating tablet 4 mg PO QID PRN nausea and vomiting #14 tabs 08/25/23
[2024-07-06 16:27] LABS: APTT 25.4 Sec (23.4-35.0)
[2024-07-06 16:29] LABS: ALT (SGPT) 31 U/L (0-35); AST (SGOT) 30 U/L (14-36); Albumin 4.9 g/dl (3.5-5.0); Alkaline Phosphatase 100 U/L (38-126); Blood Urea Nitrogen 18 mg/dl (7-17); Calcium 9.1 mg/dl (8.4-10.2); Carbon Dioxide 26 mmol/L (22-30); Chloride 102 mmol/L (98-107); Glucose 94 mg/dl (70-99); Sodium 139 mmol/L (135-145); Total Bilirubin 0.6 mg/dl (0.2-1.3); Total Protein 7.1 g/dl (6.3-8.2); eGFR > 60.00
[2024-07-06 16:42] LABS: Troponin I < 0.012 ng/ml
[2024-07-06] MEDS: LOW STRENGTH ASPIRIN 324 MG PO (16:47)
--- NOTE | 2024-07-06 16:56 | HPS.HSE ---
Addendum entered and electronically signed by Jh Jones MD 07/06/24 18:05:
see update note for addendum
Original Note:
Family Physician
-
Family Physician: Hilda Zavala MD
Chief Complaint
-
Right Sided Numbness
History of Present Illness
Patient is a 69-year-old female past medical history of left thalamic stroke in January 2016, vestibular migraine, hypertension, non-Hodgkin's lymphoma and anxiety who presents with difficulty with balance and right-sided numbness. Patient reports
has been having increased difficulty with her balance for the last several days. She states she has to hold onto people or things in order to walk. Today while at lunch she noted tingling of the left side of her lip which was then associated with
right-sided arm and leg tingling. She notes she has some residual right-sided numbness following her prior stroke but notes that this was much worse than baseline which prompted her to come to the emergency department for evaluation.
Medical History
Past Medical History
Past Medical History: Reports Other
Additional Past Medical History:
Left Thalamic Stroke (Jan 2016)
Valvular Heart Disease: Mild/Moderate Mitral Regurg, Moderate/Severe Aortic Stenosis
Essential Hypertension
Hyperlipidemia
Vestibular Migraine
Non-Hodgkin Lymphoma
Anxiety
Overactive Bladder
Past Surgical History: Reports Other
Additional Past Surgical History:
Breast Augmentation
Left Shoulder Surgery
Right Total Knee Replacement
Social History
Tobacco: Former Smoker (Quit over 40 years ago)
Alcohol: None
Family History
Family History: Not pertinent
Allergies / Home Medications
Allergies reflects when Allergies were last updated in [facility].
Home Medications with original date entered in [facility]
Allergy/Medication List:
Allergies
Allergy/AdvReac Type Severity Reaction Status Date / Time
acetaminophen [From Percocet] Allergy Rash Verified 07/06/24 15:49
hydromorphone [From Dilaudid] Allergy rash and Verified 07/06/24 15:49
vomiting
latex [Latex] Allergy Rash Verified 07/06/24 15:49
morphine Allergy Vomiting Verified 07/06/24 15:49
oxycodone [From Percocet] Allergy Rash Verified 07/06/24 15:49
Penicillins Allergy Rash as a Verified 07/06/24 15:49
child
tramadol Allergy Itching Verified 07/06/24 15:49
insect bites Allergy swelling,throat Uncoded 07/06/24 15:49
closing
Home Medications
alirocumab 75 mg/mL subcutaneous pen injector (Praluent Pen) 75 mg SC Q14D 07/06/24
amlodipine 2.5 mg tablet (Norvasc) 2.5 mg PO DAILY 07/06/24
aspirin 81 mg tablet,delayed release 81 mg PO DAILY 07/06/24
galcanezumab-gnlm 120 mg/mL subcutaneous syringe (Emgality) 120 mg SC QMONTH 07/06/24
lorazepam 1 mg tablet 1 mg PO HS 07/06/24
magnesium oxide 200 mg PO DAILY 07/06/24
vibegron 75 mg tablet (Gemtesa) 75 mg PO DAILY 07/06/24
Review of Systems
-
A 12 point ROS was completed and negative except as noted: Yes
Constitutional: Denies Fever or Chills
Respiratory: Denies Cough or Trouble Breathing
Cardiac: Denies Chest Pain or Palpitations
Abdomen/GI: Denies Abdominal Pain, Nausea, Vomiting or Diarrhea
Neurological: Reports See HPI
Physical Exam
Vital Signs
Vital Signs
Temp Pulse Resp BP Pulse Ox
98.1 F 75 15 181/105 99
07/06/24 15:44 07/06/24 16:30 07/06/24 16:30 07/06/24 16:04 07/06/24 16:30
Physical Exam
General: Comfortable and Conversant
HEENT: Moist mucous membranes, Atraumatic and Other (Wearing Sunglasses)
Respiratory: Clear and Non Labored Respirations
Cardiac: S1/S2, Regular Rhythm and Murmur
GI: Soft and Non Tender
Musculoskeletal: No Clubbing, No Cyanosis and No Edema
Skin: Warm and Dry
Neuro: Awake, Alert, Oriented, No Motor Deficits and Other (Decreased sensation on the right); No Slurred Speech
Laboratory Results
-
07/06/24 16:04
07/06/24 16:04
Laboratory Results
APTT 25.4 Sec (23.4-35.0) 07/06/24 16:04
Total Bilirubin 0.6 mg/dl (0.2-1.3) 07/06/24 16:04
AST 30 U/L (14-36) 07/06/24 16:04
ALT 31 U/L (0-35) 07/06/24 16:04
Alkaline Phosphatase 100 U/L (38-126) 07/06/24 16:04
Troponin I < 0.012 ng/ml 07/06/24 16:04
Data Reviewed
-
Lab Data: Labs Reviewed by me
Impression/Plan
-
Right Sided Numbness, possible acute stroke vs recrudescence of prior stroke
-Consult Neurology
-Check Brain MRI
-Check Hgba1c and Lipid Panel
-Monitor Neuro-Checks
-Continue aspirin
Hypertensive Emergency
-Goal for Permissive hypertension for 24 hours after onset of symptoms
-Add hydralazine 5mg PRN SBP>220 or DBP>120
-Hold amlodipine for now
Hyperlipidemia
-Patient reports intolerance to statins
-Patient maintained on Praluent injections as outpatient
Vestibular Migraines
-Patient maintained of Emgality as outpatient
Anxiety
-Continue lorazepam
Overactive Bladder
-Continue Gemtesa
DVT proph: SCDs
Code Status: Full Code
[2024-07-06] MEDS: TYLENOL 1000 MG PO (17:59)
--- NOTE | 2024-07-06 18:00 | W.PN.UPDATE ---
Update Note
Progress Note Update
I saw and examined the patient.
The CARL Andrews's note was reviewed and I agree with the note.
Comment: 69 y/o F hx of valvular heart disease, vestibular migraines, prior L thalamic CVA 2016, NHL, presents to ER with imbalance and R sided numbness. Symptoms began 2 days ago. She reports having to hold onto objects to walk and is now cane
dependant. Today she noted L facial tingling near her lip and associated R arm/leg tingling - at baseline she has R sided numbness from prior CVA. No other complaints.
in ER, CTH and CTA were negative. Evaluated by Neurology who recommended CVA workup (MRI) with admission.
Physical Exam
General: Comfortable and Conversant
HEENT: Moist mucous membranes, Atraumatic and Other (Wearing Sunglasses)
Respiratory: Clear and Non Labored Respirations
Cardiac: S1/S2, Regular Rhythm and Murmur
GI: Soft and Non Tender
Musculoskeletal: No Clubbing, No Cyanosis and No Edema
Skin: Warm and Dry
Neuro: Awake, Alert, Oriented, No Motor Deficits and Other (Decreased sensation on the right); No Slurred Speech
Assessment:
Right Sided Numbness, possible acute stroke vs recrudescence of prior stroke
- Neuro following
- permissive HTN x 24 hours (treat if >220/120)
- continue Neuro checks
- ASA loaded; continue daily starting tomorrow
- Lipids/A1c
- MRI brain
Hypertensive urgency
- if CVA confirmed, will upgrade dx to HTN emergency
- permissive HTN x 24 hours (treat if >220/120)ms
- Add hydralazine 5mg PRN SBP>220 or DBP>120
- Hold oral amlodipine for now; likely will need BP med adjustments
Hyperlipidemia
- Patient reports intolerance to statins
- Patient maintained on Praluent injections as outpatient
Vestibular Migraines
- Patient maintained of Emgality as outpatient
Anxiety
- Continue lorazepam
Overactive Bladder
- Continue Gemtesa
DVT ppx: SCDs
Code: Full
--- NOTE | 2024-07-06 20:13 | PTCARENOTE ---
Pt transferred from ED. Pt AAOX3, able to make needs known, VSS. Pt oriented to unit, call gill within reach. Will continue with current plan.
[2024-07-06] MEDS: TYLENOL 650 MG PO (22:02)
[2024-07-06] MEDS: ATIVAN 1 MG PO (22:03)
[2024-07-07] VITALS (8 sets, daily range): BP systolic 124–161; BP diastolic 71–110; PULSE 60; O2SAT 98
[2024-07-07 06:50] LABS: Hematocrit 39.3 % (37.0-47.0); Hemoglobin 13.5 g/dL (12.0-16.0); Mean Corp Hgb Conc. 34.4 g/dL (33.0-37.0); Mean Corpuscular Hgb 30.8 pg (27.0-31.0); Mean Corpuscular Volume 89.7 fL (81.0-99.0); Mean Platelet Volume 9.7 fL (7.4-10.4); Platelet Count 217 10^3/uL (130-400); Red Blood Cell Count 4.38 10^6/uL (4.20-5.40); Red Cell Dist. Width 11.9 % (11.5-14.5); White Blood Cell Count 5.3 10^3/uL (4.8-10.8)
[2024-07-07] MEDS: TYLENOL 650 MG PO (07:00)
[2024-07-07 07:16] LABS: Blood Urea Nitrogen 15 mg/dl (7-17); Calcium 9.7 mg/dl (8.4-10.2); Carbon Dioxide 25 mmol/L (22-30); Chloride 104 mmol/L (98-107); Estimated Creatinine Clearance 59 ml/min; Glucose 106 mg/dl (70-99); Magnesium 2.4 mg/dl (1.6-2.3); Sodium 137 mmol/L (135-145); Total Cholesterol 238 mg/dl (50-199); Triglyceride 72 mg/dl (10-149); Very Low Density Lipoprotein 14 mg/dl (0-30); eGFR > 60.00
[2024-07-07 07:26] LABS: HDL Cholesterol 115 mg/dl; LDL Cholesterol, Calculated 109 mg/dl
[2024-07-07] MEDS: ASPIR LOW (ENTERIC COATED) 81 MG PO (08:22)
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
[2024-07-07 10:25] LABS: Glycohemoglobin (HgbA1c) 5.5 % (4.0-5.6)
[2024-07-07] MEDS: NORVASC 5 MG PO (11:52)
[2024-07-07] MEDS: TORADOL 15 MG IV (13:28)
--- NOTE | 2024-07-07 13:46 | W.PN.NEURO.1 ---
Today's Communication / Plan
-
.
Subjective/Objective
Subjective Data
Date of Service: July 07, 2024
Neurology follow-up note.
24-hour events: Blood pressure significantly improved. The patient reports no change in vision, strength or sensation.
Ms. Buckley reported her headache to be less severe than it has been previously. The patient mentions having recently received an Emgality injection for migraine management. She describes experiencing occasional mild headaches associated with other
symptoms, which she attributes to possible food-related issues.
Brain MRI showed no acute abnormalities.
PMH: Non Hodgkin small T cell lymphoma, left thalamic stroke(2016), vestibular migraine on Emgality?, DLP, COPD, nephrolithiasis, OA, ROSANGELA, Raynauds disease
PSH: bl augmentation mammoplasty, bilateral TKA, left shoulder arthroscopy, Mohs left neck
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
All: Penicillin, tramadol, morphine, oxycodone, Lasix, Dilaudid, acetaminophen
HENT: Positive for vertigo
Allergic/Immunologic: Negative. Negative for immunocompromised state, imbalance.
Neurological: Positive for headache, right sided paresthesias
General: Well developed. In no acute distress.
Cardio: Regular rate and rhythm without murmur. Extremities are without cyanosis or edema.
Neuro:
Mental Status: Alert, oriented to person, place, and date. Normal attention and recall. Good fund of knowledge. Follows complex requests across the midline. Comprehension, naming, and repetition intact.
Cranial Nerves: Unable to visualize optic discs due to insufficient dilatation. Pupils are equally round and reactive to light. EOMs full. Visual ivy full to confrontation. No ptosis. No nystagmus. V1-V3 intact to light touch and pinprick
bilaterally, symmetric. Face symmetric. Normal hearing AU. The palate elevated well. SCMs and traps 5/5. Tongue midline. No dysarthria.
Motor: Normal bulk and tone. No pronator or arm drift. Strength 5/5 throughout. No clonus.
Coordination: No dysmetria or tremor.
Gait: deferred
Assessment and Plan:
I. Hypertensive emergency, resolved
II. History of left thalamic stroke(2016)
III. History of vestibular migraine
-Strict blood pressure control
Continue aspirin 81 mg once a day
-Outpatient neurology follow-up
I personally reviewed all radiology and labs along with past medical records pertinent to current medical problems. Total time spent in patient care is 40 minutes.
Thank you for allowing us to participate in the care of this patient. . Please do not hesitate to contact us with any questions or concerns.
Objective Data
Vital Signs
Temp Pulse Resp BP Pulse Ox
36.3 C 68 14 161/110 98
07/07/24 11:30 07/07/24 11:30 07/07/24 11:30 07/07/24 11:30 07/07/24 11:30
Lab Results
07/07/24 06:14
07/07/24 06:14
APTT 25.4 Sec (23.4-35.0) 07/06/24 16:04
Sodium 137 mmol/L (135-145) 07/07/24 06:14
Potassium 4.0 mmol/L (3.5-5.1) 07/07/24 06:14
BUN 15 mg/dl (7-17) 07/07/24 06:14
Glucose 106 mg/dl (70-99) H 07/07/24 06:14
Calcium 9.7 mg/dl (8.4-10.2) 07/07/24 06:14
LDL Cholesterol, Calc 109 mg/dl 07/07/24 06:14
Patient Allergies
acetaminophen [From Percocet] Allergy (Verified 07/06/24 15:49)
Rash
hydromorphone [From Dilaudid] Allergy (Verified 07/06/24 15:49)
rash and vomiting
latex [Latex] Allergy (Verified 07/06/24 15:49)
Rash
morphine Allergy (Verified 07/06/24 15:49)
Vomiting
oxycodone [From Percocet] Allergy (Verified 07/06/24 15:49)
Rash
Penicillins Allergy (Verified 07/06/24 15:49)
Rash as a child
tramadol Allergy (Verified 07/06/24 15:49)
Itching
insect bites Allergy (Uncoded 07/06/24 15:49)
swelling,throat closing
Vital Signs and Labs
-
Vital Signs and Labs:
Vital Signs
Temp Pulse Resp BP Pulse Ox
36.5 C 72 18 156/94 99
07/08/24 14:17 07/08/24 14:17 07/08/24 14:17 07/08/24 14:17 07/08/24 14:17
Lab Results
07/07/24 06:14
07/07/24 06:14
APTT 25.4 Sec (23.4-35.0) 07/06/24 16:04
Sodium 137 mmol/L (135-145) 07/07/24 06:14
Potassium 4.0 mmol/L (3.5-5.1) 07/07/24 06:14
BUN 15 mg/dl (7-17) 07/07/24 06:14
Glucose 106 mg/dl (70-99) H 07/07/24 06:14
Calcium 9.7 mg/dl (8.4-10.2) 07/07/24 06:14
LDL Cholesterol, Calc 109 mg/dl 07/07/24 06:14
Medications
-
Medications:
Generic Name Dose Route Start Last Admin
Trade Name Freq PRN Reason Stop Dose Admin
Acetaminophen 650 mg 07/06/24 19:56 07/07/24 07:00
Acetaminophen 325 Mg Tablet PO 08/03/24 19:55 650 mg
Q4HPRN PRN Administration
RODRIGUEZ, mild pain, or temp >100.4F
Amlodipine Besylate 5 mg 07/07/24 11:00 07/08/24 08:41
Amlodipine 5 Mg Tablet PO 08/04/24 10:59 5 mg
DAILY MIKEL Administration
Aspirin 81 mg 07/07/24 08:00 07/08/24 08:41
Aspirin 81 Mg (Enteric Coated) Tablet PO 08/04/24 07:59 81 mg
DAILY MIKEL Administration
Hydralazine HCl 5 mg 07/06/24 19:56
Hydralazine 20 Mg/Ml Vial IV 08/03/24 19:55
Q4HPRN PRN
SBP>220, or DBP>110
Lorazepam 1 mg 07/06/24 22:00 07/07/24 21:09
Lorazepam 1 Mg Tablet PO 08/03/24 21:59 1 mg
HS MIKEL Administration
Non-Formulary Medication 75 mg 07/07/24 08:00
Vibegron [Gemtesa] PO 08/04/24 07:59
DAILY MIKEL
Sodium Chloride 0 flush 07/06/24 20:00
Sodium Chloride 0.9% (Flush) Syringe IV 08/03/24 19:59
PER PROTOCOL MIKEL
Home Medications
-
Home Medications
alirocumab 75 mg/mL subcutaneous pen injector (Praluent Pen) 75 mg SC Q14D 07/06/24
aspirin 81 mg tablet,delayed release 81 mg PO DAILY 07/06/24
galcanezumab-gnlm 120 mg/mL subcutaneous syringe (Emgality) 120 mg SC QMONTH 07/06/24
lorazepam 1 mg tablet 1 mg PO HS 07/06/24
magnesium oxide 200 mg PO DAILY 07/06/24
vibegron 75 mg tablet (Gemtesa) 75 mg PO DAILY 07/06/24
amlodipine 5 mg tablet 5 mg PO DAILY #30 tabs 07/08/24
ketorolac 10 mg tablet 10 mg PO DAILY PRN migraines #10 tabs 07/08/24
--- NOTE | 2024-07-07 16:11 | CM ---
Patient seen at bedside. Patient states that she lives alone in a one story home. Patient has walker and commode but her shower chair is in the attic. Patient declined Acute rehab based on having dogs. Patient stated that she is calling her family
to support her and they will come to be with her at home so she has someone 29/12. Patient asked for [facility] referral for initial time at home and then plans to go to '[facility]' a pt therapist in [place] who specializes in vestibular therapy. Patient
stated her PCP is Dr. Zavala and she uses the [facility]. CM did send referral to Acute Rehab but patient is not willing to go due to her dogs at this time. CM will continue to follow for discharge planning needs.
Plan; referral to [facility]; liaison aware and planning to call patient vs acute rehab
--- NOTE | 2024-07-07 16:19 | VNURNOTE ---
Call placed to patient's spouse. He requested liaison speak with patient directly. Call placed to patient's room number- busy signal. Will follow up later. [facility] in [facility].
[2024-07-07] MEDS: ATIVAN 1 MG PO (21:09)
[2024-07-08 02:53] VITALS: BP 125/87
[2024-07-08 07:39] VITALS: BP 141/90
[2024-07-08] MEDS: NORVASC 5 MG PO (08:41)
[2024-07-08] MEDS: ASPIR LOW (ENTERIC COATED) 81 MG PO (08:41)
--- NOTE | 2024-07-08 10:35 | VNURNOTE ---
Home Health Liaison met with patient to discuss [facility] nurse/tHERAPY, visits, schedule and homebound status. Patient is agreeable and understands that visits at home will be 2-3 x per week to assess and teach medical management.
[facility] brochure provided with contact information. Patient is aware that [facility] will contact them for start of care in 1-2 days after discharge from .
[facility] referral completed in [facility].
[2024-07-08 11:57] VITALS: BP 151/88
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
--- NOTE | 2024-07-08 13:50 | W.DS.TRANS ---
DC Summary - General Operations Agent
-
Discharge Instructions:
Discharge Diagnosis/Procedures Hypertensive urgency
Diet Low Cholesterol,2 Gram Sodium
Activity As tolerated
Bathing Restrictions None
Other Services VN
Instructions:
Stand-Alone Forms:
Changes to Home Medications: No
Discharge Medications:
DC Medications w/original date entered in [employer]
alirocumab 75 mg/mL subcutaneous pen injector (Praluent Pen) 75 mg SC Q14D 07/06/24
aspirin 81 mg tablet,delayed release 81 mg PO DAILY 07/06/24
galcanezumab-gnlm 120 mg/mL subcutaneous syringe (Emgality) 120 mg SC QMONTH 07/06/24
lorazepam 1 mg tablet 1 mg PO HS 07/06/24
magnesium oxide 200 mg PO DAILY 07/06/24
vibegron 75 mg tablet (Gemtesa) 75 mg PO DAILY 07/06/24
amlodipine 5 mg tablet 5 mg PO DAILY #30 tabs 07/08/24
ketorolac 10 mg tablet 10 mg PO DAILY PRN migraines #10 tabs 07/08/24
Home Medication Changes
Pending Results: No
Total time spent discharging patient (in min): 41
[2024-07-08 14:17] VITALS: BP 156/94
--- NOTE | 2024-07-08 14:25 | CM ---
Pt medically stable for d/c per hospitalist. Pt to be d/c today
Met w/ pt at bedside w/ friend who is agreeable to d/c today. Pt confirmed [facility] at d/c and that she received information about the services
IMM reviewed, pt given copy, copy placed on chart
[facility] liaison made aware
Plan: Home w/ [facility]
--- NOTE | 2024-07-08 15:30 | PN.CDI ---
CDI
- -
CDI:
Physician Documentation Request
Admit Date: 07/06/24 18:23
Dear Doctor Robert,
Patient presented to ED with right sided numbness/ left lip paresthesia sensation as well as some vestibular symptoms. unable to stand up on her own. Stroke alert was called. Neuro consult and progress notes include a diagnosis of hypertensive
emergency.
Hospitalist as hypertensive urgency
In an attempt to clarify potentially conflicting documentation, please clarify the type of hypertension:
Hypertensive Urgency - B/P is severely elevated (systolic > or = to 180 or diastolic > or = to 110) but there is no associated organ damage. Symptoms may include: headache, shortness of breath, nosebleeds, severe anxiety. Treatment usually consists
of addition to or adjusting of oral medications and does not generally necessitate hospitalization.
Hypertensive Emergency - B/P is severely elevated (systolic > or = to 180 or diastolic > or = to 110) but can occur at lower levels especially in patients who did not previously have high B/P. There is usually associated organ damage. Symptoms may
include: memory loss, LOC, CVA, [place], angina, renal failure, pulmonary edema. Generally requires more aggressive treatment and a hospitalization.
Other (please specify)
Use of terms such as suspected, likely, concern for, or probable (associated with a specific diagnosis that is being evaluated, monitored, or treated as if it exists) are acceptable and can be coded in the inpatient setting, when documented at the
time of discharge.
Thank you,
Renetta Grossman RN, BSN
CDI Specialist
tiger text
Please use your independent medical judgment in providing your response.
== END 2024-07-08 15:05 | disposition home health service (06) ==
LOC: 4 WEST ACU 18:23
PROVIDERS: Emergency Medicine; Physician Assistant Medical; ADMITTING PHYSICIAN Internal Medicine; CONSULT PHYSICIAN Psychiatry & Neurology Neurology; EMERGENCY PHYSICIAN Emergency Medicine; FAMILY PHYSICIAN Family Medicine
DX: I16.0 Hypertensive urgency (principal); R20.2 Paresthesia of skin; G43.809 Other migraine, not intractable, without status migrainosus; I10 Essential (primary) hypertension; R00.0 Tachycardia, unspecified; R42 Dizziness and giddiness; R26.2 Difficulty in walking, not elsewhere classified; W19.XXXA Unspecified fall, initial encounter; Y93.9 Activity, unspecified; Y92.9 Unspecified place or not applicable; J44.9 Chronic obstructive pulmonary disease, unspecified; J34.1 Cyst and mucocele of nose and nasal sinus; F41.9 Anxiety disorder, unspecified; G31.9 Degenerative disease of nervous system, unspecified; I70.0 Atherosclerosis of aorta; M95.4 Acquired deformity of chest and rib; N32.81 Overactive bladder; R20.0 Anesthesia of skin; I67.82 Cerebral ischemia; E78.00 Pure hypercholesterolemia, unspecified; I73.00 Raynaud's syndrome without gangrene; Z85.72 Personal history of non-Hodgkin lymphomas; Z87.891 Personal history of nicotine dependence; Z82.49 Family history of ischemic heart disease and other diseases of the circulatory system; Z86.73 Personal history of transient ischemic attack (TIA), and cerebral infarction without residual deficits; Z79.82 Long term (current) use of aspirin; Z87.442 Personal history of urinary calculi; Z88.0 Allergy status to penicillin; Z88.5 Allergy status to narcotic agent; Z88.8 Allergy status to other drugs, medicaments and biological substances; Z96.653 Presence of artificial knee joint, bilateral
CPT/HCPCS: 70450; 70496; 70498; 70551; 71111; 80048; 80053; 80061; 82962; 83036; 83735; 84484; 85025; 85027; 85730; 93005; 97116; 97163; 97166; 99285; G0378; Q9967

== ENCOUNTER 2024-07-21 17:17 | Emergency (ER) | payer OTHER, SELFPAY ==
[2024-07-21 17:34] VITALS: BP 121/79
[2024-07-21 17:59] LABS: % Basophils 0.6 % (0-2); % Eosinophils 1.9 % (0-6); % Monocytes 6.5 % (1.7-9.3); Absolute Eosinophils 0.1 10^3/uL (0-0.7); Absolute Lymphocytes 1.9 10^3/uL (1.2-3.4); Absolute Monocytes 0.4 10^3/uL (0.1-0.6); Absolute Neutrophils 3.7 10^3/uL (1.4-6.5); Hematocrit 38.9 % (37.0-47.0); Hemoglobin 13.6 g/dL (12.0-16.0); Mean Corpuscular Hgb 31.5 pg (27.0-31.0); Mean Platelet Volume 9.4 fL (7.4-10.4); Nucleated Red Blood Cells % 0 %; Platelet Count 178 10^3/uL (130-400); Red Blood Cell Count 4.32 10^6/uL (4.20-5.40); White Blood Cell Count 6.2 10^3/uL (4.8-10.8)
[2024-07-21 18:16] LABS: ALT (SGPT) 41 U/L (0-35); AST (SGOT) 36 U/L (14-36); Albumin 4.9 g/dl (3.5-5.0); Alkaline Phosphatase 85 U/L (38-126); Blood Urea Nitrogen 18 mg/dl (7-17); Calcium 9.4 mg/dl (8.4-10.2); Carbon Dioxide 21 mmol/L (22-30); Chloride 102 mmol/L (98-107); Glucose 117 mg/dl (70-99); Potassium 3.6 mmol/L (3.5-5.1); Sodium 136 mmol/L (135-145); Total Bilirubin 0.7 mg/dl (0.2-1.3); Total Protein 6.8 g/dl (6.3-8.2); eGFR > 60.00
[2024-07-21 18:26] LABS: Troponin I < 0.012 ng/ml
[2024-07-21 20:00] VITALS: BP 163/100
[2024-07-21] MEDS: TYLENOL 1000 MG PO (20:06)
[2024-07-21] MEDS: BENADRYL 25 MG IV (20:07)
[2024-07-21] MEDS: REGLAN 10 MG IV (20:08)
[2024-07-21 21:07] VITALS: BP 135/77
--- NOTE | 2024-07-21 21:12 | ED.GENMED ---
History of Present Illness
General
Chief Complaint: Blood Pressure Problem
Source: patient
Exam Limitations: none
Time Seen by Provider: 07/21/24 18:31
Nursing documentation reviewed up to this point in time: agreed with
History of Present Illness
History of Present Illness:
PT IS A 69 Y/O F with h/o HTN, vestibular migraines, causing issues with balance; old thalamic stroke
admitted 07/06-07/08 for imbalance, R sided numbness, headache; had cta which was neg, MRI which was also negative. she went home on higher dose of amlodipine 5 mg rather than 2.5 mg that she was on since she was hypertensive initially
pt says she has been taking her BPs daily which are 150s/80s
today she says she woke up and felt headache, fatigued, poor balance again, and checked her BP and itw as 160/100 so she thought she should get checked
she also feels like occasionally she is stuttering trying to get her speech out
headache is mild but she has photophobia and prefers wearing glasses
pt lives alone and says she cannot go home because she is having trouble bwalkin and thinks tshe coty fall
no sudden severe headache, no neck pain ,no trauma, no focal weakness
she also says last night she had palpitatinos and chest discomfort but still wa sable to sleep
Past History
Past History
ED Past Medical History: Cancer (History of non-Hodgkin's lymphoma), HTN, Hypercholesterolemia and Other (Raynaud's disease)
ED Past Surgical History: Gynecological and Orthopedic
Social History
Tobacco: Former smoker
Alcohol: Occasional
Personal: Single
Living: with family
Employment: Employed
Family History
Family History: CAD and Other (CA)
Review of Systems
Review of Systems
Allergies reviewed?: Yes
All Other Systems: Not applicable
Phy Exam
Physical Exam
Physical Exam:
GENERAL: Alert , in no apparent distress, wearing glasses
HEAD: NCAT
EYE: pupils equal and reactive, no nystagmus, minimal photophobia
NECK: Supple,full rom, nontender
ENT: o/p clr, mmm.
CARDIAC: Regular rate and rhythm . no edema
LUNGS: Clear breath sounds bilaterally, no acute respiratory distress, no wheezes/rales/rhonchi
ABDOMEN: Soft, without focal tenderness, no r/g, no cvat
NEUROLOGICAL: Alert and orientedx 4, cn intact, no facial asymmetry, 5/5 strength in UE/LE, sensation intact, wide based gait; took a few steps, off balance; neg pronator drift
slower deliberate speech at times, sometim,es stutters but doesn't slur and no facial droop
seems to be distractable
SKIN: Warm and dry, skin intact.
MUSCULOSKELETAL: No edema, well perfused.
PSYCH: Normal and appropriate interaction.
Course
Orders/Labs/Results
Orders:
Orders
07/21/24 17:26
Electrocardiogram (*1) Urgent
Reason for Study: Vertigo / Dizzy
EKG- Treatment ONCE
07/21/24 17:47
Complete Blood Count/With Diff Urgent
Comprehensive Metabolic Panel Urgent
Troponin I Urgent
07/21/24 19:52
Acetaminophen [Tylenol] 1,000 mg PO NOW STA
Diphenhydramine [Benadryl] 25 mg IV NOW STA
Metoclopramide [Reglan] 10 mg IM NOW STA
07/21/24 19:53
CT Head W/o Iv Contrast Urgent
Comment:
Reason For Exam: headache, poor balance
07/21/24 20:07
Metoclopramide [Reglan] 10 mg IV NOW STA
Abnormal Lab Results
07/21/24
17:47
MCH 31.5 H pg
(27.0-31.0)
Carbon Dioxide 21 L mmol/L
(22-30)
BUN 18 H mg/dl
(7-17)
Glucose 117 H mg/dl
(70-99)
ALT 41 H U/L
(0-35)
07/21/24 17:47
07/21/24 17:47
Vital Signs
Blood pressure: 133/77
Initial and Last Documented VS:
Initial Vital Signs
Temp Pulse Resp BP Pulse Ox
36.6 C 81 16 121/79 97
07/21/24 17:34 07/21/24 17:34 07/21/24 17:34 07/21/24 17:34 07/21/24 17:34
Last Documented Vital Signs
Temp Pulse Resp BP Pulse Ox
36.6 C 77 13 133/77 97
07/21/24 17:34 07/21/24 20:14 07/21/24 20:14 07/21/24 21:27 07/21/24 21:08
MDM/Problems Addressed
Differential Diagnosis Includes:
vestibular migraine, hypertensive urgency, less likely stroke, migraine,
MDM/Problems Addressed:
69 y/o F h/o stroke
vestibular migraines she says with intermittent episodses of poor balance
here with headache, balance problems, lightheadeness, and checked BP at home which was high
just had w/u here for same 2 weeks ago
mri neg
bp improved
bobby dill but says her sypmtoms again worse today
she has photophobia, wearing glasses
sometimes speech totally normal other times stutters or is slow and deliberate but not dysarthric - and her speech does seem to come and go normally and then be slower;
no focal weakness
but she is wide based gait and only takes a few steps
it doesn't seem llike she would fully fall if leg go but she doesn't wish to let go
unfortunately given the time of day, i am unable to get PT consult
ct head neg
labs reassuring
ekg nonischemic
trop neg
migraine improved with meds
pt says she will fall if she gets up and lives alone and doesnt think she should go home
i think pt will require PT/OT consult.
i was called to pt's room as she was getting dressed
she said she called her friend to pick her up
i had mentioned i wanted to see her walk before sending her home
pt voiced she was unhappy with the thought of going home originally becuase she as nervous her balance was bad that she wuold fall;
i told her i would make a disposition based on what she could do, now that her pain was better, bp was better, ct head was normal and her speech seems to have cleared up
pt admitted she went back to using her cane thepast 2 days rather than the walker she used while amditted and for a week afte rdischarge becaue she felt she was improving so much and then today she felt she took a step backward
i mentioned that with her history of vestibular problems, this may just be a flare up and that she would need to use the walker again but thati would admit her for observation for formal PT consultation
pt's speech was clear during this interaction
pt says she was unhappy with her care and felt that she will go home regardless of whether she can walk or not
which i asked her if she would like to see another provider so that she felt more comfortable but pt delcined
i observed her from the hallway ambulating steadily with walker and this conversation was [facility] ALISA abdi
*Critical Care Note
Total Time (30-74mins, 75-104mins- exclusive of procedures): Not Applicable
ED Attending Note
-
Portions of this chart may have been created with voice recognition software.� Occasional wrong word or��sound alike� substitutions may have occurred due to the inherent limitations of voice recognition software.
Discharge Plan
Departure
Patient Disposition: Home (Routine Discharge)
Date of Disposition: 07/21/24
Time of Disposition: 22:03
Patient with high blood pressure during this ER visit?: No
Condition: Fair
Covid-19: Not Applicable
Discharge Problem:
Vestibular migraine, Hypertension
Instructions: Headaches in adults, High blood pressure - ED discharge instructions
Prescriptions:
No Action
aspirin 81 mg Tablet,Delayed Release (Dr/Ec)
81 mg PO DAILY
lorazepam 1 mg Tablet
1 mg PO HS
Praluent Pen 75 mg/mL Pen Injector
75 mg SC Q14D
magnesium oxide 200 mg magnesium Tablet
200 mg PO DAILY
Emgality Syringe 120 mg/mL Syringe
120 mg SC QMONTH
Gemtesa 75 mg Tablet
75 mg PO DAILY
amlodipine 5 mg Tablet
5 mg PO DAILY Qty: 30 0RF
ketorolac 10 mg tablet
10 mg PO DAILY PRN (Reason: migraines) Qty: 10 0RF
Rx Instructions:
maximum total duration of 5 days from all oral, intranasal, or parenteral formulations
Referrals:
Hilda Zavala MD [Family Provider] - Follow up in 2-3 days
Activity Restrictions/Additional Instructions:
YOU WERE TREATED WITH MEDICATION FOR MIGRAINE
YOUR BLOOD PRESSURE IMPROVED
YOUR CAT SCAN SHOWED NO ACUTE FINDINGS
YOUR BLOOD WORK WAS REASSURING
YOU WERE OFFERED AN OBSERVATION ADMISSION TO HAVE A PT EVALUATION BUT YOU PREFERRED TO GO HOME
USE YOUR WALKER
SEE YOUR FAMILY DOCTOR THIS WEEK
RETURN FOR ANY CONCERNS.
Interventions
Interventions:
*Risk Screen - Suicide Last Done: 07/21/24 17:34
*General Assessment Last Done: 07/21/24 17:34
*Neglect/Abuse Screening Last Done: 07/21/24 18:32
ED- Fall Risk Assessment Last Done: 07/21/24 22:25
*ED COVID-19 Vaccine History Last Done: 07/21/24 17:34
*Nursing Disposition Last Done: 07/21/24 22:25
ED- Cardiac Assessment Last Done: 07/21/24 20:18
ED- Neurological Assessment Last Done: 07/21/24 20:18
ED- Pulmonary Assessment Last Done: 07/21/24 20:18
Discharge Date and Time
Discharge Date/Time: 07/21/24 22:25
Print Language: FINNISH
== END 2024-07-21 22:25 | disposition home or self-care (01) ==
LOC: EMR 17:17
PROVIDERS: Emergency Medicine; EMERGENCY PHYSICIAN Student in an Organized Health Care Education/Training Program; FAMILY PHYSICIAN Family Medicine
DX: G43.809 Other migraine, not intractable, without status migrainosus (principal); I10 Essential (primary) hypertension; Z87.891 Personal history of nicotine dependence
CPT/HCPCS: 99285; 96374; 96375; 96372; 70450; 80053; 84484; 85025; 93005

== ENCOUNTER → 2024-09-03 09:13 | Outpatient (REF) | payer OTHER, SELFPAY | LOC: RCS 09:13 | PROVIDERS: ATTENDING PHYSICIAN Physician Assistant Medical; FAMILY PHYSICIAN Family Medicine | DX: I10 Essential (primary) hypertension (principal); I35.0 Nonrheumatic aortic (valve) stenosis | CPT/HCPCS: 93306 ==

== ENCOUNTER → 2025-02-16 10:05 | Outpatient (REF) | payer OTHER, SELFPAY | LOC: RCS 10:05 | PROVIDERS: ATTENDING PHYSICIAN Internal Medicine Cardiovascular Disease; FAMILY PHYSICIAN Family Medicine | DX: I35.0 Nonrheumatic aortic (valve) stenosis (principal) | CPT/HCPCS: 93306 ==